=== PATIENT | male | born 1985 | race Caucasian/White ===

== ENCOUNTER → 2018-10-18 | Outpatient (REF) ==
[~2018-10-18] MED LIST: DOXYCYCLINE 10100 MG PO; LEVAQUIN 750MG750 MG PO; LORTAB 5/500 501 TAB PO; PREDNISONE10 MG
== END ==
LOC: ZLAB.WCH 14:25
DX: Z01.89 Encounter for other specified special examinations (principal)

== ENCOUNTER → 2018-10-28 | Outpatient (REF) | LOC: ZLAB.WCH 12:57 | DX: Z01.89 Encounter for other specified special examinations (principal) ==

== ENCOUNTER → 2019-01-06 | Outpatient (REF) | LOC: ZLAB.WCH 16:16 | DX: Z01.89 Encounter for other specified special examinations (principal) ==

== ENCOUNTER → 2020-06-30 | Outpatient (CLI) | payer OTHER | LOC: COL.RAD 11:54 | DX: M19.012 Primary osteoarthritis, left shoulder (principal) | CPT/HCPCS: A9585; Q9967 ==

== ENCOUNTER 2022-02-05 12:53 | Observation (INO) | payer OTHER ==
[~2022-02-05] VITALS: Ht 175 cm; Wt 72.0 kg
[2022-02-05] VITALS (9 sets, daily range): BP systolic 106–127; BP diastolic 59–80; PULSE 57–74; TEMP 98.1–98.5
--- NOTE | 2022-02-05 14:00 | NUR ---
PATIENT ARRIVED TO UNIT VIA POV IN STABLE CONDITION. PLACED IN ASSIGNED ROOM AND GIVEN GOWN TO CHANGE INTO. CALL PLACED TO DR HODGSON FOR PAIN CONTROL. AWAITING OTHER ORDERS AT THIS TIME TO CONSENT FOR SURGERY.
--- NOTE | 2022-02-05 17:07 | NUR ---
PATIENT TAKEN TO SURGERY AT THIS TIME. IN STABLE CONDITION
--- NOTE | 2022-02-05 19:05 | NUR ---
PT ARRIVES VIA BED FROM PACU. IS ALERT AND ORIENTED. SPOUSE AT BEDSIDE. HAS IVF TO [facility] INFUSING WITHOUT PROBLEM.
--- NOTE | 2022-02-05 21:11 | NUR ---
PT REPORTS NAUSEA WITHOUT EMESIS. HAS EATEN SOME, VOIDED AND BEEN OUT OF BED. WOULD LIKE TO GO HOME. RATING PAIN 5/10 TO ABD. HAS SCOPALAMINE PATCH ON WELL FOR NAUSEA.
--- NOTE | 2022-02-05 21:12 | NUR ---
ZOFRAN WAS GIVEN IV FOR NAUSEA.
--- NOTE | 2022-02-05 22:10 | NUR ---
PT AMBULATES IN HALLWAY WITH SPOUSE. GAIT STEADY.
--- NOTE | 2022-02-05 22:15 | NUR ---
SPOKE WITH DR HODGSON REGARDING PT DESIRE TO DISCHARGE. OKAYED TAKE HOME PACK OF NORCO, PT HAS NONE AT HOME.
--- NOTE | 2022-02-05 22:35 | NUR ---
PT READY FOR DISCHARGE. REVIEWED DISCHARGED INSTRUCTIONS WITH PT AND . TAKE HOME PACK OF NORCO 5 GIVEN. DC'D INT FROM [facility], ANGIOCATH INTACT. STILL HAVING NAUSEA, NO EMESIS. SCOPALAMINE PATCH ON.
--- NOTE | 2022-02-05 22:40 | NUR ---
PT DISCHARGED VIA W/C TO PRIVATE CAR. COPY OF DISCHARGE INSTRUCTIONS SENT WITH PT AND TAKE HOME FORTESCUE #4 TAKEN. PERSONAL BELONGINGS WITH PT WELL.
== END 2022-02-05 22:40 | disposition home or self-care (01) ==
LOC: SURG 12:53
PROVIDERS: ADMIT Surgery
DX: K35.80 Unspecified acute appendicitis (principal); F17.210 Nicotine dependence, cigarettes, uncomplicated
CPT/HCPCS: G0378; J0690; J1100; J1170; J2270; J2405; J2704; J3010; J7120